=== PATIENT | female | born 1950 | race Caucasian/White ===

== ENCOUNTER → 2016-09-06 | Outpatient (CLI) | payer BC | END | disposition home or self-care (01) | LOC: C.LABSPEC 17:59 | PROVIDERS: ATTEND Nurse Practitioner Family | DX: R39.15 Urgency of urination (principal) ==

== ENCOUNTER → 2016-10-13 | Outpatient (CLI) | payer BC | END | disposition home or self-care (01) | LOC: C.PATHSPEC 16:45 | PROVIDERS: ATTEND Dermatology | DX: C44.91 Basal cell carcinoma of skin, unspecified (principal); L57.0 Actinic keratosis ==

== ENCOUNTER → 2016-12-16 | Outpatient (CLI) | payer BC | END | disposition home or self-care (01) | LOC: C.LABSPEC 12-14 09:17 | PROVIDERS: ATTEND Dermatology | DX: L98.9 Disorder of the skin and subcutaneous tissue, unspecified (principal) ==

== ENCOUNTER → 2017-04-25 | Outpatient (CLI) | payer OTHER, MEDICARE ==
--- NOTE | 2017-04-26 15:59 | MAMMOGRAPHY REPORT ---
BILATERAL DIGITAL SCREENING MAMMOGRAM WITH CAD: 04/25/2017 CLINICAL HISTORY: Routine screening. Patient has no complaints. TECHNIQUE: Bilateral CC and MLO views were obtained. Current study was also evaluated with a Compute r Aided Detection (CAD) system. COMPARISON: Comparison is made to exams dated: 04/22/2016 mammogram - [facility], mammogram, and 04/16/2014 mammogram. BREAST COMPOSITION: The tissue of both breasts is almost entirely fatty. FINDINGS: There are a few benign-appearing calcifications in the breasts. No suspicious mass, rob ectural distortion or cluster of microcalcifications is seen. IMPRESSION: ACR BI-RADS CATEGORY 1: NEGATIVE There is no mammographic evidence of malignancy. A 1 year screening mammogram is recommended. The pa tient will receive written notification of the results. Approximately 10% of breast cancers are not detected with mammography. A negative mammographic report should not delay biopsy if a clinically suggestive mass is present. Sade Handley M.D. ay/:04/25/2017 15:53:30 Data Processing Systems Consultant: Gertrude LOVING(R)(M), [facility] letter sent: Normal 1/2 BI-RADS Code: ACR BI-RADS Category 1: Negative
== END | disposition home or self-care (01) ==
LOC: C.MAMM 13:41
PROVIDERS: ATTEND Physician Assistant Medical
DX: Z12.31 Encounter for screening mammogram for malignant neoplasm of breast (principal)

== ENCOUNTER → 2017-05-16 | Outpatient (CLI) | payer OTHER, MEDICARE | END | disposition home or self-care (01) | LOC: C.MAMM 08:16 | PROVIDERS: ATTEND Physician Assistant Medical | DX: Z13.820 Encounter for screening for osteoporosis (principal); M85.832 Other specified disorders of bone density and structure, left forearm ==

== ENCOUNTER → 2017-07-25 | Outpatient (CLI) | payer OTHER, MEDICARE ==
--- NOTE | 2017-07-25 11:35 | DIAGNOSTIC IMAGING REPORT ---
R FOOT MIN 3 VIEWS ROUTINE CLINICAL HISTORY: OSTEOARTHRITIS RIGHT FOOT PAIN COMPARISON: None. DISCUSSION: No acute fractures or dislocations are visualized. There is a plantar calcaneal spur. There are mild degenerative changes at the level of the navicular cuneiform articulation. There is a plantar calcaneal spur. IMPRESSION: 1. No acute fractures 2. No evidence of erosive disease 3. Mild degenerative changes within the midfoot 4. Plantar calcaneal spur Electronically signed by: River Espinosa M.D. 07/25/2017 11:33 AM Dictated Date/Time: 07/25/2017 11:32 AM
--- NOTE | 2017-07-25 11:47 | DIAGNOSTIC IMAGING REPORT ---
LEFT FOOT 3 VIEWS HISTORY: OSTEOARTHRITIS COMPARISON: Right foot 07/25/2017. FINDINGS: There is no fracture or dislocation. Soft tissues are unremarkable. Severe osteoarthritis at the first MTP joint with [id number] articulation and large marginal osteophytes. Plantar heel spur. There is also severe osteoarthritis at the PIP joint of the second toe which also demonstrate [id number] articulation and marginal osteophytes. Mild osteoarthritis within the remaining interphalangeal joints of the toes. IMPRESSION: Severe osteoarthritis at the first MTP joint and PIP joint of the second toe. No fractures. Electronically signed by: Vin Qureshi M.D. 07/25/2017 11:45 AM Dictated Date/Time: 07/25/2017 11:44 AM
== END | disposition home or self-care (01) ==
LOC: C.RAD1850 10:50
PROVIDERS: ATTEND Podiatrist
DX: M19.072 Primary osteoarthritis, left ankle and foot (principal); R60.0 Localized edema; M77.31 Calcaneal spur, right foot

== ENCOUNTER → 2017-12-12 | Outpatient (CLI) | payer OTHER, MEDICARE ==
--- NOTE | 2017-12-12 10:57 | DIAGNOSTIC IMAGING REPORT ---
(RENAL)RETROPERITON COMP CLINICAL HISTORY: 67 years-old Female presenting with R39.15 Urinary [id number]. TECHNIQUE: Real-time grayscale and limited color Doppler ultrasound imaging of the kidneys and bladder was performed. COMPARISON: None. FINDINGS: Right kidney: Normal echogenicity of renal parenchyma. Right kidney measures 10.2 cm. No hydronephrosis. No convincing evidence of calculus or mass. Left kidney: Normal echogenicity of renal parenchyma. Left kidney measures 10.2 cm. No hydronephrosis. No convincing evidence of calculus or mass. Bladder: Normal. Bilateral ureteral jets present. Other: None. IMPRESSION: 1. Normal renal ultrasound. No obstruction. Electronically signed by: Buddy Gordillo M.D. 12/12/2017 10:56 AM Dictated Date/Time: 12/12/2017 10:56 AM
== END | disposition home or self-care (01) ==
LOC: C.ULTR 10:26
PROVIDERS: ATTEND Urology
DX: R39.15 Urgency of urination (principal)

== ENCOUNTER → 2018-04-26 | Outpatient (CLI) | payer OTHER, MEDICARE ==
[~2018-04-26] MED LIST: ATOR-24 PO; BUPRTAB51 PO; CALC500T25 PO; CHOL100027 PO; CIPR1TAB10 PO; CITA10TA4 PO; MULT-506 PO; PRLSR20 PO
--- NOTE | 2018-04-26 15:08 | MAMMOGRAPHY REPORT ---
BILATERAL DIGITAL SCREENING MAMMOGRAM TOMOSYNTHESIS WITH CAD: 04/26/2018 CLINICAL HISTORY: Routine screening. Patient has no complaints. TECHNIQUE: Breast tomosynthesis in addition to standard 2D mammography was performed. Current study w as also evaluated with a Computer Aided Detection (CAD) system. COMPARISON: Comparison is made to exams dated: 04/25/2017 mammogram, 04/22/2016 mammogram - [facility], 04/22/2015 mammogram, and 04/16/2014 mammogram. BREAST COMPOSITION: The tissue of both breasts is almost entirely fatty. FINDINGS: No suspicious masses, calcifications, or areas of architectural distortion are noted in either breast . There has been no significant interval change compared to prior exams. Bilateral benign-appearing calcifications are stable. IMPRESSION: ACR BI-RADS CATEGORY 2: BENIGN There is no mammographic evidence of malignancy. A 1 year screening mammogram is recommended.( [id number]) The patient will receive written notification of the results. Some breast cancers are not detected with mammography. A negative mammographic report should not chad y biopsy if a clinically suggestive mass is present. Jessica Wood M.D. /:04/26/2018 12:29:16 Corporate Librarian: RT Norberto(Carlito)(Jessica)(BD), [facility] letter sent: Normal 1/2 BI-RADS Code: ACR BI-RADS Category 2: Benign
== END | disposition home or self-care (01) ==
LOC: C.MAMM 11:35
PROVIDERS: ATTEND Physician Assistant Medical
DX: Z12.31 Encounter for screening mammogram for malignant neoplasm of breast (principal)